=== PATIENT | male | born 1995 | race Caucasian/White ===

== ENCOUNTER 2022-01-16 11:38 | Emergency (ER) | payer OTHER ==
[~2022-01-16] VITALS: Ht 182.9 cm; Wt 99.8 kg
[2022-01-16] MEDS ORDERED: KETOROLAC TROMETHAMINE 60 MG INJ IM ONE ×2 (13:02→13:15)
[2022-01-16] MEDS ORDERED: IBUP-1957 PO (13:47)
--- NOTE | 2022-01-16 14:40 | NUR ---
Patient discharged to home in stable condition. Written and verbal after care instructions given. Patient verbalizes understanding of instructions. Stressed follow up or return to ER for worsening s/s.
[2022-01-16 14:49] VITALS: BP 120/65
== END 2022-01-16 14:50 | disposition home or self-care (01) ==
LOC: ER 11:43
DX: S93.401A Sprain of unspecified ligament of right ankle, initial encounter (principal); S93.601A Unspecified sprain of right foot, initial encounter; W51.XXXA Accidental striking against or bumped into by another person, initial encounter; Y93.66 Activity, soccer; Y92.322 Soccer field as the place of occurrence of the external cause
CPT/HCPCS: 99283; 73610; 73630; 96372; J1885; A4663